=== PATIENT | male | born 1975 | race Caucasian/White ===

== ENCOUNTER 2018-08-26 12:04 | Emergency (ER) | payer BC, OTHER ==
[2018-08-26] MEDS ORDERED: Ibuprofen TAB* 400 MG PO ONE (12:42)
[2018-08-26] MEDS ORDERED: Lidocaine 1%* 5 ML VIAL INJ ONE (13:02)
[2018-08-26 15:12] VITALS: BP 131/87
--- NOTE | 2018-08-26 18:20 | ED ---
Laceration/Wound HPI - HPI Summary HPI Summary: Patient is a 43-year-old male who presents to the emergency department for numerous lacerations to right hand that occurred just prior to arrival. Patient states he was working on his car and or the melchor when he slipped on a chair and his hand went into the motor. Patient sustained 2 lacerations to right hand. Patient states tetanus immunization was within 5 years. No significant past medical history. Touching affected area makes symptoms worse. Rest makes symptoms better. - History of Current Complaint Stated Complaint: LACERATION TO RIGHT HAND Time Seen by Provider: 08/26/18 12:14 Hx Obtained From: Patient Pain Intensity: 5 PMH/Surg Hx/FS Hx/Imm Hx Previously Healthy: Yes Infectious Disease History: No Infectious Disease History: Denies: Traveled Outside the [place] in Last 30 Days - Family History Known Family History: Positive: Non-Contributory - Social History Occupation: Employed Full-time Lives: With Family Alcohol Use: Occasionally Substance Use Type: Reports: None Smoking Status (MU): Never Smoked Tobacco Review of Systems Positive: Other - Pain and laceration to right hand Negative: Weakness, Paresthesia, Numbness All Other Systems Reviewed And Are Negative: Yes Physical Exam Triage Information Reviewed: Yes Vital Signs On Initial Exam: Initial Vitals Temp Pulse Resp BP Pulse Ox 98.2 F 93 19 158/103 99 08/26/18 12:07 08/26/18 12:07 08/26/18 12:07 08/26/18 12:07 08/26/18 12:07 Vital Signs Reviewed: Yes Appearance: Positive: Well-Appearing - Pt. sitting on bed in NAD. Dressing on right hand Skin: Positive: Warm, Dry Head/Face: Positive: Normal Head/Face Inspection Eyes: Positive: Normal, EOMI Neck: Positive: Supple Musculoskeletal: Positive: Other - Roughly 6cm laceration noted to the palmar aspect on the right hand to the distal aspect. Laceration extends to inbetween 3rd and 4th digits. Entire nail is gone from 4th digit. 3cm laceration to medial aspect of right 3rd digit with skin avulsion. Full ROM of all digits. Minimal active bleeding. Neurological: Positive: CN Intact II-III Psychiatric: Positive: Affect/Mood Appropriate Procedures - Splinting Right Upper Extremity Hand-Made Type: orthoglass Splint: volar Pre-Proc Neuro Vasc Exam: normal Post-Proc Neuro Vasc Exam: normal - Laceration/Wound Repair 1 Location: upper extremity - palm of hand Description: Linear Anesthesia: Local, 1.0% Length, Depth and Shape: linear 6cm Betadine Prep?: No - hibiclens Irrigated w/ Saline (ccs): 500 Laceration/Wound Explored: contaminated Suture Type: Nylon Number of Sutures: 10 Layer Closure?: No Sterile Dressing Applied?: Yes 2 Location: upper extremity - 3rd digit right hand Description: Linear Anesthesia: Local, 1.0% Length, Depth and Shape: 3cm linear with skin avulsion Betadine Prep?: No - hibiclens Irrigated w/ Saline (ccs): 500 Laceration/Wound Explored: contaminated Suture Type: Nylon Number of Sutures: 4 Layer Closure?: No Sterile Dressing Applied?: Yes Diagnostics - Vital Signs Vital Signs Temp Pulse Resp BP Pulse Ox 08/26/18 15:11 98.9 F 85 16 131/87 96 08/26/18 12:07 98.2 F 93 19 158/103 99 - Laboratory Lab Statement: Any lab studies that have been ordered have been reviewed, and results considered in the medical decision making process. Laceration Repair Course/Dx - Course Course Of Treatment: Patient presenting with numerous hand lacerations after getting hand caught in a motor. He has full range of motion of all digits and there is on appear to be any tendon involvement. X-ray shows fracture to distal aspect of the fourth digit and questionable fracture to distal third metacarpal. Wounds were extensively irrigated and cleaned. Laceration to third digit there is a skin avulsion and could not fully approximate skin. Hand was splinted. Will have patient follow up with orthopedics for fractures and wound check. Patient to call her office tomorrow for close follow-up appointment. To keep splint in place. To keep wounds clean and dry. Patient notes he has allergic reaction of hives to penicillins and Keflex. Will provide history with subsequent. 2 days and Lortab were prescribed. Advised ice and elevation as well. Patient to return here for increased pain, redness, swelling or drainage from wounds. Patient understands and agrees with plan. - Differential Dx Differental Diagnoses: Foreign Body, Laceration, Tendon Laceration - Clinical Impression Provider Diagnoses: Finger fracture, Hand fracture, Laceration, Skin avulsion Discharge - Sign-Out/Discharge Documenting (check all that apply): Patient Departure - Discharge Plan Condition: Good Disposition: HOME Prescriptions: DOXYcycline CAP(*) [DOXYcycline 100MG CAP(*)] 100 mg PO BID #20 cap HYDROcodone/ACETAMIN 5-325 MG* [Gordon 5-325 TAB*] 1 tab PO Q6H PRN #12 tab MDD 4 tablets PRN Reason: Pain Patient Education Materials: Care For Your Stitches (ED), Laceration (ED), Finger Fracture (ED), Hand Fracture (ED) Referrals: Ave Francisco MD [Medical Doctor] - Additional Instructions: Call Dr. Francisco's office tomorrow morning to schedule a close follow up appointment Take medication as directed Ice and elevate hand Keep splint in place Return to ER for fever, redness, swelling or drainage from wound - Billing Disposition and Condition Condition: GOOD Disposition: Home
== END 2018-08-26 15:11 | disposition home or self-care (01) ==
LOC: ED 12:04
DX: S62.664A Nondisplaced fracture of distal phalanx of right ring finger, initial encounter for closed fracture (principal); S61.212A Laceration without foreign body of right middle finger without damage to nail, initial encounter; S61.411A Laceration without foreign body of right hand, initial encounter; W22.09XA Striking against other stationary object, initial encounter; Y92.9 Unspecified place or not applicable
CPT/HCPCS: 12004; 99282; A9270-GY